=== PATIENT | male | born 1975 | race Hispanic/Latino ===

== ENCOUNTER 2022-12-14 03:39 | Emergency (ER) | payer OTHER ==
[~2022-12-14] VITALS: Ht 170.2 cm; Wt 79.4 kg
[2022-12-14] MEDS ORDERED: ACETAMINOPHEN/CODEINE 300MG - 30MG TAB PO ONE (04:15)
[2022-12-14] MEDS ORDERED: Clindamycin INJ 150 MG/ML 600 MG Vial IM ONE (04:15)
[2022-12-14] MEDS ORDERED: CLINDAMYCIN HCL 150 MG CAP PO ONE (04:15)
[2022-12-14] MEDS ORDERED: ACETAMINOPHEN/CODEINE ELIX 120-12 MG/5 ML UDC NG ONE (04:30)
[2022-12-14] MEDS ORDERED: ACETAMINOPHEN/CODEINE ELIX 120-12 MG/5 ML UDC ONE (04:32)
[2022-12-14] MEDS ORDERED: CLEOCIN HCL300 MG PO (04:32)
[2022-12-14] MEDS ORDERED: CIPROFLOXACIN2.5 ML OP (04:40)
[2022-12-14] MEDS ORDERED: FLUORESCEIN SOD(OPTH) 1 MG STRP OP ONE (05:45)
[2022-12-14] MEDS ORDERED: TETRACAINE HCL 0.5% OPTH SOLN 4 ML BTL OP ONE (05:45)
== END 2022-12-14 04:45 | disposition home or self-care (01) ==
LOC: FSED 03:49
DX: H00.032 Abscess of right lower eyelid (principal); S05.01XA Injury of conjunctiva and corneal abrasion without foreign body, right eye, initial encounter; X58.XXXA Exposure to other specified factors, initial encounter; Y92.89 Other specified places as the place of occurrence of the external cause
CPT/HCPCS: 99283

== ENCOUNTER 2025-07-06 20:15 | Emergency (ER) | payer SELFPAY ==
[~2025-07-06] VITALS: Ht 170.2 cm; Wt 71.2 kg
[~2025-07-06 20:15] MED LIST: CIPROFLOXACIN2.5 ML OP; CLEOCIN HCL300 MG PO
[2025-07-06] MEDS ORDERED: ULTRAM 50MG50 MG PO (21:16)
[2025-07-06] MEDS ORDERED: AUGMENTIN 500-1 EACH PO (21:16)
[2025-07-06] MEDS: TETANUS/DIPHTHERIA TOX ADULT 0.5 ML SYR IM STA (21:39)
[2025-07-06] MEDS: LIDOCAINE HCL 1% LOCAL INJ 20 ML VIAL INJ STA (21:39)
[2025-07-06 21:40] VITALS: PULSE 68; RESP 16; TEMP 98.1
[2025-07-06 22:28] VITALS: BP 140/85; PULSE 68; RESP 18; TEMP 98.1; O2SAT 98
== END 2025-07-06 21:47 | disposition home or self-care (01) ==
LOC: FSED 20:16
DX: S61.302A Unspecified open wound of right middle finger with damage to nail, initial encounter (principal); W31.89XA Contact with other specified machinery, initial encounter; Y92.89 Other specified places as the place of occurrence of the external cause; F17.210 Nicotine dependence, cigarettes, uncomplicated
CPT/HCPCS: 12001; 73140; 90471; 90714; 96372; 99284; J2003